=== PATIENT | male | born 1975 | race Caucasian/White ===

== ENCOUNTER 2018-01-19 17:08 | Emergency (ER) | payer SELFPAY ==
[~2018-01-19] VITALS: Ht 185.4 cm; Wt 120.2 kg
[~2018-01-19 17:08] MED LIST: CYCLOBENZAPRINE10 MG PO; GABAPENTIN300 MG PO; HYDROCODON-ACE1 EA10 PO; IBUPROFEN400 MG PO; MOBIC7.5 MG PO; NORCO 5-325 TA1 EACH PO; ULTRAM50 MG PO
== END 2018-01-19 17:41 | disposition home or self-care (01) ==
LOC: ED 17:08
DX: M54.9 Dorsalgia, unspecified (principal)

== ENCOUNTER 2021-01-05 21:48 | Emergency (ER) | payer SELFPAY ==
[~2021-01-05] VITALS: Ht 185.4 cm; Wt 120.2 kg
== END 2021-01-05 23:58 | disposition home or self-care (01) ==
LOC: ED 21:48
DX: S61.222A Laceration with foreign body of right middle finger without damage to nail, initial encounter (principal); Z23 Encounter for immunization; W22.8XXA Striking against or struck by other objects, initial encounter; F17.200 Nicotine dependence, unspecified, uncomplicated
CPT/HCPCS: 12002; 73140; 90471; 90714; 99283-25